=== PATIENT | male | born 1950 | race African-American/Black ===

== ENCOUNTER → 2016-11-24 | Outpatient (CLI) | payer MEDICARE, OTHER ==
[~2016-11-24] MED LIST: ADVAIR 2501 DISK W/D PO; APRESOLINE PO; CADUET 10 MG/101 TAB PO; CLARITIN10 MG PO; HYDROCODON-ACE1 EAC4 PO; LISINOPRIL PO; NASONEX17 GM; RANITIDINE HCL150 M1 PO; RENA-VITE PO; RENAGEL403 MG PO; RENAGEL800 MG PO; SENSIPAR90 MG PO; SPIRIVA18 MCG INH
--- NOTE | ~2016-11-24 | US38 ---
[facility] A Service of [facility] RADIOLOGY TEXT RESULTS PATIENT: PATRICK CURIEL LOCATION: CNIV : 46 UNIT #: [id number] AGE: [address]: Kristen Johnson SEX: M ORDER DR: [id number] [facility] [address] [place], [place] [address] [id number] O MR#: [id number] Acc #: [id number] NAME: PATRICK CURIEL : 1950 SEX: M STUDY DATE/TIME: 11/24/2016 13:48 UNIT: CNIV ROOM: STUDY DESCRIPTION: US Carotid W/Doppler Unilatera Attending Physician: Kristen Johnson A.P.R.N. Referring Physician: Kristen Johnson A.P.R.N. Ordering Physician: Kristen Johnson A.P.R.N. Primary Care Physician: Lazaro Bloom M.D. MEDICAL IMAGING REPORT This report is preliminary unless electronic signature is present EXAM Left carotid duplex, 11/24/2016 HISTORY Left carotid endarterectomy in 2013. FINDINGS Duplex imaging of the left carotid artery was performed. Plaque is seen in the left common carotid artery and in the bulb extending in the internal and external carotid arteries which is hyperechoic and irregular. Velocity in the left common carotid is 74, internal is 123 proximally, 161 mid portion and 116 distally. External carotid artery is 403 cm/sec. Left ICA/CCA ratio is 2.1. Antegrade flow is seen in the left vertebral artery. IMPRESSION 1. 50% to 69% stenosis is seen in the left mid internal carotid artery. 2. Significant stenosis is seen in the left external carotid artery. 3. Antegrade flow is seen in the left vertebral artery. Dictated by... Zachariah Nixon M.D. THIS IS AN ELECTRONICALLY VERIFIED REPORT Zachariah Nixon M.D. at 12/02/2016 7:15 AM Camilo TD: 11/25/2016 14:20 JOB #: [id number] MEDICAL IMAGING REPORT Page 1 of 1 COPY
== END | disposition home or self-care (01) ==
LOC: CNIV 10:30
DX: I65.22 Occlusion and stenosis of left carotid artery (principal)
CPT/HCPCS: 93882